=== PATIENT | male | born 1975 ===

== ENCOUNTER 2024-04-03 10:09 | Outpatient (AMB) | payer MEDICARE, SELFPAY ==
--- NOTE | 2024-04-03 10:11 | A.OFFVIS_ITS ---
Vital Signs 04/03/24 10:13 Height 6 ft 2 in Weight 255 lb 11.779 oz BMI 32.8 BP 120/80 Blood Pressure Location Rt brachial Position Sitting Pulse 120 H Pulse Source Pulse Oximeter Intake Visit Reasons: T2DM/# not in service Intake Note: NEW Patient presents today to establish treatment for Type 2 Diabetes Mellitus: Last Diabetic eye exam was on: [facility] Last Podiatry exam was on: [facility], pt has a wound on his left ankle. 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 He is currently living in a [place] in [place] and states that staff dropped him off here today. He is a poor historian. 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 He can not tell me when he was diagnosed with diabetes in multiple times during today's conversation he states that he does not think he has diabetes. I did discuss with him his issues with the sugar being elevated and he does seem to understand this. He states that he has had problems with the higher sugar in his blood for about 10 years or so. He does not know his family and states he does not know any history. He denies any polyuria or polydipsia. Denies ever feeling weak or shaky. He states that he does not like it when he gets his finger stick. He would not wear a CGM. He believes he takes metformin. Farxiga 5 mg is listed in his medication list but he does not know if he takes this or not. Denies any urinary frequency or irritation. He is not sure if he has any side effects to this medicine. His glucose today is 156 in the office. This is not fasting. He has a more recent A1c of 9.9. His blood pressure today in the office is 120/80. There does not appear to be on any antihypertensives listed in his chart. He does appear to take atorvastatin 20 mg. [facility] Medical History (Updated 04/03/24 @ 11:05 by Britni Osuna PA-C) Hx of type 2 diabetes mellitus History of violent behavior History of open wound of lower extremity Hx of paranoid schizophrenia Physical Exam Vital Signs: Last Vital Signs Pulse 120 H 04/03/24 10:13 BP 120/80 04/03/24 10:13 BMI result Body Mass Index 32.8 Const Orientation/consciousness: patient oriented x3 HEENT Ears: hearing grossly normal bilaterally Neck Thyroid: Thyroid normal Lymphatic: no lymphadenopathy noted Resp Auscultation: clear to auscultation bilaterally Cardio Rate: regular rate Rhythm: regular rhythm Heart sounds: S1 normal heart sound present and S2 normal heart sound present Skin General skin exam: no rashes or lesions noted Neuro General: patient oriented x3, gait normal and no focal motor deficits Results Reviewed Results Reviewed: Laboratory Last Values Glucose (Clinic) 156 mg/dL (60-115) H 04/03/24 10:16 Assessment & Plan Assessment & Plan (1) Uncontrolled diabetes mellitus with hyperglycemia: Code(s): E11.65 - Type 2 diabetes mellitus with hyperglycemia Category: Medical Plan: Exam somewhat limited due to patient declining removing footwear. I did speak with staff who brought patient today to the visit and encouraged someone to be with him for subsequent visits. I have ordered labs that patient states he does not want to do this today and does become a bit hostile when talking about getting blood work. He tells me that we can negotiate blood work and he will do it before our next visit but needs to know ahead of time that he needs labs. I did order labs including a C- peptide, antibodies and CMP, lipid, microalbumin, A1c. I will start glipizide. Discussed risks and benefits and adverse effects of this medication. He will let me know if he is unable to tolerate it or if he develops any hypoglycemic events. Attempted to discuss some dietary modifications but he does not wish to. I have offered diabetic Education however he declines. (2) Paranoid schizophrenia: Code(s): F20.0 - Paranoid schizophrenia Category: Medical Plan: Patient reports feeling stable. He does not appear violent or threatening today as he does have a history of this but does appear at times somewhat hostile or upset with the diagnosis of diabetes. (3) Hyperlipidemia: Code(s): E78.5 - Hyperlipidemia, unspecified Category: Medical Plan: Continue atorvastatin. Lipids and LFTs ordered. Orders: Orders C Peptide Today E11.65 - Type 2 diabetes mellitus with hyperglycemia Glutamic acid decarboxylase Ab Today E11.65 - Type 2 diabetes mellitus with hyperglycemia Islet Cell Antibody Scrn/Titer Today E11.65 - Type 2 diabetes mellitus with hyperglycemia Hemoglobin A1c Today R73.01 - Impaired fasting glucose Lipid Panel Today E11.65 - Type 2 diabetes mellitus with hyperglycemia Comprehensive Met. Panel Today E11.65 - Type 2 diabetes mellitus with hyperglycemia Microalbumin, Random (w Creat) Today E11.65 - Type 2 diabetes mellitus with hyperglycemia Medications: New glipizide ER 5 mg PO DAILY 90 tabs 1RF Coding Level of Care Code New Pt Level 4 (69646) Complex EM visit Add On G2211 Diagnoses Uncontrolled diabetes mellitus with hyperglycemia E11.65 Paranoid schizophrenia F20.0 Hyperlipidemia E78.5
[2024-04-03 10:13] VITALS: BP 120/80; PULSE 120; BMI 32.8
[2024-04-03 10:23] LABS: Glucose, Whole Blood 156 mg/dL (60-115)
== END 2024-04-03 10:45 | disposition home or self-care (01) ==
PROVIDERS: PCP Clinical Nurse Specialist Psychiatric/Mental Health, Adult; Visit Provider Physician Assistant
DX: E11.65 Type 2 diabetes mellitus with hyperglycemia (principal); F20.0 Paranoid schizophrenia; E78.5 Hyperlipidemia, unspecified

== ENCOUNTER 2024-07-03 09:33 | Outpatient (AMB) | payer MEDICARE, SELFPAY ==
[2024-07-03 09:33] VITALS: BP 142/78; PULSE 124; O2SAT 95; BMI 33.1
--- NOTE | 2024-07-03 09:33 | A.OFFVIS_ITS ---
Vital Signs 07/03/24 09:33 Height 6 ft 2 in Weight 257 lb 15.053 oz BMI 33.1 BP 142/78 H Blood Pressure Location Rt brachial Position Sitting Pulse 124 H Pulse Source Pulse Oximeter Pulse Oximetry (%) 95 Oxygen Delivery Method Room Air Intake Visit Reasons: T2DM Intake Note: Patient presents today for a follow-up on Type 2 Diabetes Mellitus: Patient does not check his blood glucose nor has a glucometer. Last Diabetic eye exam was on: [facility] Last Podiatry exam was on: [facility], pt has a wound on his left ankle. 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 He is currently living in a halfway in [place]. He is a poor historian. He can not tell me when he was diagnosed with diabetes in multiple times during today's conversation he states that he does not think he has diabetes. I did discuss with him his issues with the sugar being elevated and he does seem to understand this. He states that he has had problems with the higher sugar in hi s blood for about 10 years or so. He does not know his family and states he does not know any history. He denies any polyuria or polydipsia. Denies ever feeling weak or shaky. He states that he does not like it when he gets his finger stick. He would not wear a CGM. He believes he takes metformin. Farxiga 5 mg is listed in his medication list but he does not know if he takes this or not. Denies any urinary frequency or irritation. He is not sure if he has any side effects to this medicine. His glucose today is 156 in the office. This is not fasting. He has a more recent A1c of 9.9. His blood pressure today in the office is 120/80. There does not appear to be on any antihypertensives listed in his chart. He does appear to take atorvastatin 20 mg. [facility] Medical History (Updated 04/03/24 @ 11:05 by Britni Osuna PA-C) Hx of type 2 diabetes mellitus History of violent behavior History of open wound of lower extremity Hx of paranoid schizophrenia Physical Exam Vital Signs: Last Vital Signs Pulse 124 H 07/03/24 09:33 BP 142/78 H 07/03/24 09:33 Pulse Ox 95 07/03/24 09:33 Oxygen Delivery Method Room Air 07/03/24 09:33 BMI result Body Mass Index 33.1 Results AMB Hemoglobin A1c AMB Hemoglobin A1c 10.3 % Last Edit by VLADIMIR Herman on 07/03/24 09:4 9 Results Reviewed Results Reviewed: Laboratory Last Values Glucose (Clinic) 357 mg/dL (60-115) H* 07/03/24 09:40 Hgb A1c (Clinic) 10.3 % (4.0-6.0) H 07/03/24 09:42 Assessment & Plan Assessment & Plan Orders: Orders AMB Hemoglobin A1c Today E11.65 - Type 2 diabetes mellitus with hyperglycemia Saliva Cortisol Today E11.65 - Type 2 diabetes mellitus with hyperglycemia Coding
[2024-07-03 09:44] LABS: Glucose, Whole Blood 357 mg/dL (60-115)
== END 2024-07-03 09:56 | disposition home or self-care (01) ==
LOC: HO.ENCR 09:33
PROVIDERS: PCP Clinical Nurse Specialist Psychiatric/Mental Health, Adult; Visit Provider Nurse Practitioner Adult Health
DX: E11.65 Type 2 diabetes mellitus with hyperglycemia (principal)

== ENCOUNTER → 2024-07-03 09:33 | Outpatient (BNVA) | payer MEDICARE, SELFPAY | PROVIDERS: PCP Clinical Nurse Specialist Psychiatric/Mental Health, Adult; Visit Provider Nurse Practitioner Adult Health | DX: E11.65 Type 2 diabetes mellitus with hyperglycemia (principal) | CPT/HCPCS: 82947; 83036; 99202 ==